=== PATIENT | male | born 1970 | race Caucasian/White ===

== ENCOUNTER 2018-10-07 18:08 | Emergency (ER) | payer OTHER ==
--- NOTE | 2018-10-07 19:25 | RADIOLOGY REPORT (SQ) ---
EXAM DESCRIPTION: SOFT TISSUE NECK COMPLETED DATE/TIME: 10/07/2018 7:11 pm REASON FOR STUDY: tlingit & haida syndrome lateral neck pain COMPARISON: None. NUMBER OF VIEWS: Two views. TECHNIQUE: AP and lateral radiographic image of the soft tissues of the neck. LIMITATIONS: None. FINDINGS: EPIGLOTTIS: Normal. Contour normal. Aryepiglottic folds normal. PREVERTEBRAL SOFT TISSUES: Normal. No soft tissue swelling. SUBGLOTTIC AREA: Normal. No narrowing. RETROPHARYNGEAL SPACE: Normal. No soft tissue masses. BONES: No significant findings. LUNG APICES: Normal. OTHER: No radiopaque foreign body. No other significant finding. IMPRESSION: No significant findings. TECHNICAL DOCUMENTATION: JOB ID: [id number] 2010 [employer]- All Rights Reserved Reading location - IP/workstation name: [email or web address]
[2018-10-07] MEDS ORDERED: PREDNISONE 20 MG TABLET PO ONE (19:31)
--- NOTE | 2018-10-07 19:34 | ER Document Report ---
ED General - General Chief Complaint: Numbness Stated Complaint: NECK PAIN Time Seen by Provider: 10/07/18 18:37 TRAVEL OUTSIDE OF THE [place] IN LAST 30 DAYS: No - HPI Patient complains to provider of: Bilateral finger numbness bilateral neck pain Notes: Patient coming in for evaluation of bilateral neck pain. Patient states underneath his ear goes down to the lateral portion of his neck on both sides patient states initially thought he was getting sinus infection however sore throat and other symptoms discontinued does continue to have the neck pain patient states only tender to palpation no tenderness with movement of his neck. Denies any trauma. Denies any dizziness fevers chills nausea vomiting diarrhea. Patient also denies any syncope. Patient also complaining of bilateral fifth and fourth digit numbness. 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 Patient denies any injuries to his upper extremities. Patient otherwise resting comfortably upon my evaluation. - Related Data Allergies/Adverse Reactions: No Known Allergies Allergy (Unverified 10/07/18 18:11) Past Medical History - Social History Smoking Status: Never Smoker Chew tobacco use (# tins/day): No Frequency of alcohol use: None Drug Abuse: None Family History: Reviewed & Not Pertinent Patient has suicidal ideation: No Patient has homicidal ideation: No Renal/ Medical History: Denies: Hx Peritoneal Dialysis Review of Systems - Review of Systems Constitutional: No symptoms reported EENT: Other - Bilateral neck pain Cardiovascular: No symptoms reported Respiratory: No symptoms reported Gastrointestinal: No symptoms reported Genitourinary: No symptoms reported Male Genitourinary: No symptoms reported Musculoskeletal: No symptoms reported Skin: No symptoms reported Hematologic/Lymphatic: No symptoms reported Neurological/Psychological: Tingling -: Yes All other systems reviewed and negative Physical Exam - Vital signs Vitals: Temp Pulse Resp BP Pulse Ox 98.8 F 58 L 20 114/66 96 10/07/18 18:25 10/07/18 18:25 10/07/18 18:25 10/07/18 18:25 10/07/18 18:25 Interpretation: Normal - General General appearance: Appears well, Alert - HEENT Head: Normocephalic, Atraumatic Eyes: Normal Pupils: PERRL Ears: Normal External canal: Normal - Moderate wax buildup in the left ear canal Tympanic membrane: Normal Neck: No: Brudzinski, Carotid bruit, Lymphadenopathy, Meningismus, Neck mass, Shotty nodes, Subcutaneous emphysema Notes: Patient with tenderness underneath the angle of the mandible underneath the tragus of the ear bilaterally to palpation there is no lymphadenopathy no crepitus and no tenderness of the SCM muscle bilaterally range of motion of the neck is well-maintained no midline tenderness - Respiratory Respiratory status: No respiratory distress Chest status: Nontender Breath sounds: Normal Chest palpation: Normal - Cardiovascular Rhythm: Regular Heart sounds: Normal auscultation Murmur: No - Abdominal Inspection: Normal Distension: No distension Bowel sounds: Normal Tenderness: Nontender Organomegaly: No organomegaly - Back Back: Normal, Nontender - Extremities General upper extremity: Normal inspection, Nontender, Normal color, Normal ROM, Normal temperature General lower extremity: Normal inspection, Nontender, Normal color, Normal ROM, Normal temperature, Normal weight bearing. No: Kathy's sign Notes: No reproduction of symptoms on tapping of the bilateral median nerves also no reproduction of symptoms tapping the cubital fossa no reproduction of symptoms with Phalen's testing - Neurological Neuro grossly intact: Yes Cognition: Normal Orientation: AAOx4 [place] Coma Scale Eye Opening: Spontaneous [place] Coma Scale Verbal: Oriented [place] Coma Scale Motor: Obeys Commands [place] Coma Scale Total: 15 Speech: Normal Motor strength normal: LUE, RUE, LLE, RLE Sensory: Normal - Psychological Associated symptoms: Normal affect, Normal mood - Skin Skin Temperature: Warm Skin Moisture: Dry Skin Color: Normal Course - Re-evaluation Re-evalutation: 10/07/18 20:31 Soft tissue neck x-ray was performed there is no signs of calcification of the stylohyoid ligament no acute findings. Possible eustachian tube dysfunction as patient does have some sinus symptoms do believe some of his pain could be due to irritation of his eustachian tubes will treat at this time with Tylenol Motrin also start the patient on a prednisone taper. Did recommend patient follow-up with his primary care physician also to check his ergonomics of his workstation is a may have cubital tunnel or carpal tunnel syndrome - Vital Signs Vital signs: Temp Pulse Resp BP Pulse Ox 98.2 F 56 L 18 109/65 98 10/07/18 19:40 10/07/18 19:40 10/07/18 19:40 10/07/18 19:40 10/07/18 19:40 Discharge - Discharge Clinical Impression: Numbness of fingers, Eustachian tube pain Condition: Good Instructions: Numbness or Paresthesia ([facility]) Additional Instructions: X-ray of your neck did not reveal any critical pathology. Your physical examination consistent with pain more likely due to irritation of your eustachian tubes tubes that were drained in her ear. I recommend Tylenol Motrin for pain control also will place you on a steroid taper for the next few days. I would recommend using [id number] allergy medication such as Zyrtec to help out with symptoms as well. I would highly recommend follow-up with your primary care physician if your symptoms not improved in the next 1-2 weeks. Your numbness of your fingers is very consistent with a possible carpal tunnel or cubital tunnel like syndrome this is where the nerve is compressed causing intermittent numbness. I would check the ergonomics of your workstation whenever you are typing or performing repetitive motions. I would also recommend keeping a symptomatic log book and to follow-up with your physician in approximately 2-4 weeks Prescriptions: Cetirizine HCl [Zyrtec 10 mg Tablet] 1 tab PO DAILY #30 tablet Prednisone [Deltasone] 60 mg PO DAILY #24 tablet Forms: Return to Work
[2018-10-07 19:42] VITALS: BP 109/65
== END 2018-10-07 19:43 | disposition home or self-care (01) ==
LOC: ER 18:08
DX: H69.90 Unspecified Eustachian tube disorder, unspecified ear (principal); R20.0 Anesthesia of skin; M54.2 Cervicalgia
CPT/HCPCS: 99283; 70360; J7512